=== PATIENT | female | born 1960 | race African-American/Black ===

== ENCOUNTER 2016-10-05 11:03 | Emergency (ER) | payer OTHER ==
--- NOTE | 2016-10-05 11:07 | ER Document Report ---
ED Medical Screen (RME) - General Stated Complaint: DIZZY/VOMITING Mode of Arrival: Ambulatory Information source: Patient Notes: Patient complains of dizziness. Patient reports symptoms are past 3 days. Patient reports nausea vomiting, and diarrhea. Patient denies any abdominal pain. hx: Hypertension, diabetes I have greeted and performed a rapid initial assessment of this patient. A comprehensive ED assessment and evaluation of the patient, analysis of test results and completion of the medical decision making process will be conducted by additional ED providers. TRAVEL OUTSIDE OF THE [place] IN LAST 30 DAYS: No - Related Data Allergies/Adverse Reactions: No Known Allergies Allergy (Verified 10/05/16 11:05) Past Medical History - Past Medical History Cardiac Medical History: Reports: Hx Hypertension Denies: Hx Coronary Artery Disease, Hx Heart Attack Pulmonary Medical History: Reports: Hx Asthma Denies: Hx Bronchitis, Hx COPD, Hx Pneumonia Neurological Medical History: Denies: Hx Cerebrovascular Accident, Hx Seizures Endocrine Medical History: Reports: Hx Diabetes Mellitus Type 2 Musculoskeltal Medical History: Reports Hx Arthritis - shoulders, back, knee Past Surgical History: Reports: Hx Orthopedic Surgery - Immunizations Hx Diphtheria, Pertussis, Tetanus Vaccination: No Physical Exam - General General appearance: Appears well, Alert In distress: None
[2016-10-05 11:50] LABS: ABSOLUTE MONOCYTES (AUTO) 0.6 10^3/uL (0.1-1.4); ABSOLUTE NEUT (AUTO) 2.4 10^3/uL (1.7-8.2); BASOPHILS % (AUTO) 0.4 % (0-2); EOSINOPHILS % (AUTO) 0.7 % (0-6); HEMOGLOBIN 12.8 g/dL (12.0-15.5); HGB HCT DIFFERENCE 0.4; LYMPHOCYTES % (AUTO) 39.5 % (13-45); MEAN CORPUSCULAR HEMOGLOBIN 29.5 pg (27.0-33.4); MEAN CORPUSCULAR HGB CONC 33.6 g/dL (32.0-36.0); MEAN CORPUSCULAR VOLUME 88 fl (80-97); MONOCYTES % (AUTO) 11.8 % (3-13); RED BLOOD COUNT 4.34 10^6/uL (3.72-5.28); RED CELL DISTRIBUTION WIDTH 15.5 % (11.5-14.0); SEGMENTED NEUTROPHILS % (AUTO) 47.6 % (42-78)
[2016-10-05 11:59] LABS: APPEARANCE,URINE SLIGHTLY-CLOUDY; BILIRUBIN,URINE NEGATIVE (NEGATIVE); GLUCOSE, URINE NEGATIVE (NEGATIVE); KETONES,URINE NEGATIVE (NEGATIVE); LEUKOCYTE ESTERASE,URINE NEGATIVE (NEGATIVE); NITRITE,URINE NEGATIVE (NEGATIVE); PROTEIN,URINE NEGATIVE (NEGATIVE); URINE SPECIFIC GRAVITY 1.013; UROBILINOGEN,URINE NEGATIVE mg/dL (<2.0)
[2016-10-05 12:10] LABS: ALANINE AMINOTRANSFERASE 72 U/L (9-52); ALBUMIN 4.3 g/dL (3.5-5.0); ALKALINE PHOSPHATASE 92 U/L (38-126); ANION GAP 11 (5-19); ASPARTATE AMINO TRANSFERASE 56 U/L (14-36); BLOOD UREA NITROGEN 16 mg/dL (7-20); CALCIUM 9.7 mg/dL (8.4-10.2); CARBON DIOXIDE 31 mmol/L (22-30); CHLORIDE 102 mmol/L (98-107); CREATININE RESULT 0.82 mg/dL (0.52-1.25); GLUCOSE 120 mg/dL (75-110); LIPASE 106.5 U/L (23-300); POTASSIUM 3.4 mmol/L (3.6-5.0); TOTAL PROTEIN 7.6 g/dL (6.3-8.2)
[2016-10-05] MEDS ORDERED: ONDANSETRON HCL INJ/PF 4 MG/2 ML SDV IV ONE (12:18)
[2016-10-05] MEDS ORDERED: NORMAL SALINE 1000 ML 1,000 ML IV PRN (12:18)
[2016-10-05] MEDS ORDERED: PROCHLORPERAZINE EDISYLATE INJ 10 MG/2 ML VIAL IV ONE (12:18)
--- NOTE | 2016-10-05 13:05 | ER Document Report ---
ED General - General Chief Complaint: Vomiting Stated Complaint: DIZZY/VOMITING Mode of Arrival: Ambulatory TRAVEL OUTSIDE OF THE [place] IN LAST 30 DAYS: No - HPI Patient complains to provider of: nausea vomiting dizziness Notes: Patient coming in for symptoms ongoing for the last 4 days nausea vomiting dizziness. Patient states no sick contacts no recent antibiotics. Patient states no recent travel out of state or country states no flu vaccine this year. Denies fevers chills chest pain abdominal pain - Related Data Allergies/Adverse Reactions: No Known Allergies Allergy (Verified 10/05/16 11:05) Past Medical History - General Information source: Patient - Social History Smoking Status: Unknown if Ever Smoked Chew tobacco use (# tins/day): No Frequency of alcohol use: None Drug Abuse: None Family History: Reviewed & Not Pertinent Patient has suicidal ideation: No Patient has homicidal ideation: No - Past Medical History Cardiac Medical History: Reports: Hx Hypertension Denies: Hx Coronary Artery Disease, Hx Heart Attack Pulmonary Medical History: Reports: Hx Asthma Denies: Hx Bronchitis, Hx COPD, Hx Pneumonia Neurological Medical History: Denies: Hx Cerebrovascular Accident, Hx Seizures Endocrine Medical History: Reports: Hx Diabetes Mellitus Type 2 Renal/ Medical History: Denies: Hx Peritoneal Dialysis Musculoskeltal Medical History: Reports Hx Arthritis - shoulders, back, knee Past Surgical History: Reports: Hx Orthopedic Surgery - Knee. Denies: Hx Appendectomy - Immunizations Hx Diphtheria, Pertussis, Tetanus Vaccination: No Review of Systems - Review of Systems Constitutional: No symptoms reported EENT: No symptoms reported Cardiovascular: No symptoms reported Respiratory: No symptoms reported Gastrointestinal: Abdominal pain, Nausea, Vomiting Genitourinary: No symptoms reported Female Genitourinary: No symptoms reported Musculoskeletal: No symptoms reported Skin: No symptoms reported Hematologic/Lymphatic: No symptoms reported Neurological/Psychological: No symptoms reported -: Yes All other systems reviewed and negative Physical Exam - Vital signs Vitals: Temp Pulse Resp BP Pulse Ox 97.9 F 109 H 16 153/97 H 96 10/05/16 11:06 10/05/16 11:06 10/05/16 11:06 10/05/16 11:06 10/05/16 11:06 Interpretation: Normal - General General appearance: Appears well, Alert - HEENT Head: Normocephalic, Atraumatic Eyes: Normal Pupils: PERRL - Respiratory Respiratory status: No respiratory distress Chest status: Nontender Breath sounds: Normal Chest palpation: Normal - Cardiovascular Rhythm: Regular Heart sounds: Normal auscultation Murmur: No - Abdominal Inspection: Normal Distension: No distension Bowel sounds: Normal Tenderness: Nontender Organomegaly: No organomegaly - Back Back: Normal, Nontender - Extremities General upper extremity: Normal inspection, Nontender, Normal color, Normal ROM , Normal temperature General lower extremity: Normal inspection, Nontender, Normal color, Normal ROM , Normal temperature, Normal weight bearing. No: Iron's sign - Neurological Neuro grossly intact: Yes Cognition: Normal Orientation: AAOx4 [place] Coma Scale Eye Opening: Spontaneous [place] Coma Scale Verbal: Oriented Subha Coma Scale Motor: Obeys Commands [place] Coma Scale Total: 15 Speech: Normal Motor strength normal: LUE, RUE, LLE, RLE Sensory: Normal - Psychological Associated symptoms: Normal affect, Normal mood - Skin Skin Temperature: Warm Skin Moisture: Dry Skin Color: Normal Course - Re-evaluation Re-evalutation: 10/05/16 15:17 The patient presents with n/v/d without signs of peritonitis or other life- threatening or serious etiology. The patient appears stable for discharge and has been instructed to return immediately if the symptoms worsen in any way, or in 8-12hr if not improved for re-evaluation. The patient has been instructed to return if the symptoms worsen or change in any way.. - Vital Signs Vital signs: Temp Pulse Resp BP Pulse Ox 98.3 F 91 20 122/78 93 10/05/16 14:05 10/05/16 14:05 10/05/16 14:05 10/05/16 14:05 10/05/16 14:05 - Laboratory Result Diagrams: 10/05/16 11:25 10/05/16 11:25 Laboratory results interpreted by me: 10/05/16 10/05/16 10/05/16 11:20 11:25 11:25 RDW 15.5 H Potassium 3.4 L Carbon Dioxide 31 H Glucose 120 H AST 56 H ALT 72 H Urine Blood SMALL H Discharge - Discharge Clinical Impression: Feeling unwell Nausea & vomiting Qualifiers: Vomiting type: unspecified Vomiting Intractability: unspecified Qualified Code( s): R11.2 - Nausea with vomiting, unspecified Condition: Good Disposition: HOME, SELF-CARE Instructions: Gastroenteritis (adult) ([facility]) Additional Instructions: Take medication as prescribed. Return to ER symptoms worsen. Prescriptions: Ondansetron [Zofran Odt 4 mg Tablet] 1 - 2 tab PO Q4H PRN #30 tab.rapdis PRN Reason: For Nausea/Vomiting Promethazine HCl [Phenergan 25 mg Tablet] 1 - 2 tab PO Q6H PRN #30 tablet PRN Reason: Forms: Return to Work
[2016-10-05 14:56] VITALS: BP 122/78
== END 2016-10-05 14:00 | disposition home or self-care (01) ==
LOC: ER 11:03
DX: R11.2 Nausea with vomiting, unspecified (principal); R42 Dizziness and giddiness
CPT/HCPCS: 99284; 96361; 96374; 96375; 36415; 82962; 83690; 84703; 85025; 80053; 81001; J0780; J2405; J7030

== ENCOUNTER → 2018-03-26 | Outpatient (CLI) | payer OTHER ==
[2018-03-26 17:04] LABS: ABSOLUTE EOSINOPHILS # (AUTO) 0.1 10^3/uL (0.0-0.6); ABSOLUTE LYMPHOCYTES (AUTO) 2.4 10^3/uL (0.5-4.7); ABSOLUTE MONOCYTES (AUTO) 0.5 10^3/uL (0.1-1.4); ABSOLUTE NEUT (AUTO) 1.9 10^3/uL (1.7-8.2); BASOPHILS % (AUTO) 0.4 % (0-2); EOSINOPHILS % (AUTO) 1.1 % (0-6); HEMOGLOBIN 12.6 g/dL (12.0-15.5); LYMPHOCYTES % (AUTO) 48.9 % (13-45); MEAN CORPUSCULAR HEMOGLOBIN 30.4 pg (27.0-33.4); MEAN CORPUSCULAR HGB CONC 34.2 g/dL (32.0-36.0); MEAN CORPUSCULAR VOLUME 89 fl (80-97); MONOCYTES % (AUTO) 11.1 % (3-13); PLATELET COUNT 296 10^3/uL (150-450); RED BLOOD COUNT 4.16 10^6/uL (3.72-5.28); RED CELL DISTRIBUTION WIDTH 13.6 % (11.5-14.0); SEGMENTED NEUTROPHILS % (AUTO) 38.5 % (42-78); TOTAL CELLS COUNTED % (AUTO) 100 %; WHITE BLOOD COUNT 4.9 10^3/uL (4.0-10.5)
[2018-03-26 17:43] LABS: ALANINE AMINOTRANSFERASE 43 U/L (9-52); ALBUMIN 4.2 g/dL (3.5-5.0); ALKALINE PHOSPHATASE 100 U/L (38-126); ANION GAP 14 (5-19); ASPARTATE AMINO TRANSFERASE 47 U/L (14-36); BILIRUBIN,DIRECT 0.3 mg/dL (0.0-0.4); BILIRUBIN,TOTAL 0.6 mg/dL (0.2-1.3); BLOOD UREA NITROGEN 17 mg/dL (7-20); CALCIUM 9.3 mg/dL (8.4-10.2); CARBON DIOXIDE 27 mmol/L (22-30); CHLORIDE 102 mmol/L (98-107); GLUCOSE 87 mg/dL (75-110); SODIUM 143.2 mmol/L (137-145); TOTAL PROTEIN 7.7 g/dL (6.3-8.2)
[2018-03-26 18:31] LABS: POTASSIUM 2.8 mmol/L (3.6-5.0)
== END ==
LOC: OD 16:26
PROVIDERS: ATTEND Orthopaedic Surgery
DX: Z11.2 Encounter for screening for other bacterial diseases (principal); I10 Essential (primary) hypertension; E11.8 Type 2 diabetes mellitus with unspecified complications
CPT/HCPCS: 36415; 80053; 83036; 85025; 87070

== ENCOUNTER 2019-04-07 14:13 | Emergency (ER) | payer OTHER ==
--- NOTE | 2019-04-07 14:45 | ER Document Report ---
ED Medical Screen (RME) - General Chief Complaint: Dizziness Stated Complaint: DIZZINESS Time Seen by Provider: 04/07/19 14:42 Primary Care Provider: ROGERIO ALVA MD [Primary Care Provider] - Follow up as needed Mode of Arrival: Ambulatory Information source: Patient Notes: 58-year-old female presented to ED for complaint of dizziness when she woke up this morning. She states she has had a history of dizziness in the past and had medications for but it did not help today. She states she has had some tingling and pulsating in her left arm down to her fingers for about the last month but she does not know what this is from. She states when she is busy and up and doing stuff she can black it out but when she is not busy than she feels it. She does have a history of carpal tunnel surgery diabetes type 2 blood pressure and low potassium. She is a former smoker she drinks about monthly and does not use any street drugs. She lives with her . Patient is alert oriented respirations regular and unlabored speaking in full sentences walks with a even steady gait. I have greeted and performed a rapid initial assessment of this patient. A comprehensive ED assessment and evaluation of the patient, analysis of test results and completion of medical decision making process will be conducted by an additional ED providers. Dictation of this chart was performed using voice recognition software; therefore, there may be some unintended grammatical errors. TRAVEL OUTSIDE OF THE [place] IN LAST 30 DAYS: No - Related Data Allergies/Adverse Reactions: No Known Allergies Allergy (Verified 04/07/19 14:14) Past Medical History - Past Medical History Cardiac Medical History: Reports: Hx Hypertension Denies: Hx Coronary Artery Disease, Hx Heart Attack Pulmonary Medical History: Reports: Hx Asthma Denies: Hx Bronchitis, Hx COPD, Hx Pneumonia Neurological Medical History: Denies: Hx Cerebrovascular Accident, Hx Seizures Endocrine Medical History: Reports: Hx Diabetes Mellitus Type 2 Renal/ Medical History: Denies: Hx Peritoneal Dialysis Musculoskeltal Medical History: Reports Hx Arthritis - shoulders, back, knee Past Surgical History: Reports: Hx Orthopedic Surgery - Knee. Denies: Hx Appendectomy - Immunizations Hx Diphtheria, Pertussis, Tetanus Vaccination: No Physical Exam - Vital signs Vitals: Temp Pulse Resp BP Pulse Ox 98.2 F 58 L 15 128/78 H 94 04/07/19 14:19 04/07/19 14:19 04/07/19 14:19 04/07/19 14:19 04/07/19 14:19 Course - Vital Signs Vital signs: Temp Pulse Resp BP Pulse Ox 98.2 F 58 L 15 128/78 H 94 04/07/19 14:19 04/07/19 14:19 04/07/19 14:19 04/07/19 14:19 04/07/19 14:19 Doctor's Discharge - Discharge Referrals: ROGERIO ALVA MD [Primary Care Provider] - Follow up as needed
[2019-04-07 15:15] LABS: ABSOLUTE MONOCYTES (AUTO) 0.4 10^3/uL (0.1-1.4); ABSOLUTE NEUT (AUTO) 1.7 10^3/uL (1.7-8.2); BASOPHILS % (AUTO) 0.3 % (0-2); EOSINOPHILS % (AUTO) 0.9 % (0-6); HEMATOCRIT 37.3 % (36.0-47.0); HEMOGLOBIN 12.5 g/dL (12.0-15.5); LYMPHOCYTES % (AUTO) 48.4 % (13-45); MEAN CORPUSCULAR HGB CONC 33.5 g/dL (32.0-36.0); MEAN CORPUSCULAR VOLUME 90 fl (80-97); MONOCYTES % (AUTO) 10.1 % (3-13); PLATELET COUNT 252 10^3/uL (150-450); RED BLOOD COUNT 4.16 10^6/uL (3.72-5.28); SEGMENTED NEUTROPHILS % (AUTO) 40.3 % (42-78); TOTAL CELLS COUNTED % (AUTO) 100 %; WHITE BLOOD COUNT 4.2 10^3/uL (4.0-10.5)
[2019-04-07 15:30] LABS: ALKALINE PHOSPHATASE 97 U/L (38-126); ANION GAP 7 (5-19); ASPARTATE AMINO TRANSFERASE 31 U/L (14-36); BILIRUBIN,DIRECT 0.1 mg/dL (0.0-0.4); BILIRUBIN,TOTAL 0.4 mg/dL (0.2-1.3); BLOOD UREA NITROGEN 22 mg/dL (7-20); CALCIUM 9.2 mg/dL (8.4-10.2); CARBON DIOXIDE 29 mmol/L (22-30); CHLORIDE 105 mmol/L (98-107); CREATINE KINASE 318 U/L (30-135); GLUCOSE 91 mg/dL (75-110); POTASSIUM 3.9 mmol/L (3.6-5.0); TOTAL PROTEIN 7.3 g/dL (6.3-8.2)
[2019-04-07 15:50] LABS: TROPONIN I < 0.012 ng/mL
--- NOTE | 2019-04-07 17:14 | ER Document Report ---
ED General - General Chief Complaint: Dizziness Stated Complaint: DIZZINESS Time Seen by Provider: 04/07/19 14:42 Primary Care Provider: ROGERIO ALVA MD [ASSOCIATE] - Follow up as needed Mode of Arrival: Ambulatory TRAVEL OUTSIDE OF THE [place] IN LAST 30 DAYS: No - HPI Notes: Patient presents emergency department for evaluation of dizziness as well as l eft arm tingling and pain. She states her dizziness started this morning. She complains of vertiginous type sensation. She has had this in the past. She took 12-1/2 mg of meclizine without any significant improvement so she presents here. She states that her vertigo has been improved since then. She denies any visual changes. No difficulty speaking or swallowing. Moving her arms and legs without difficulty. Over the last month she has had an aching, burning, and "jumping" pain in her left arm. It seems to go through her entire arm, upper shoulder, and into her neck. She states is helped by propping her arm on a pillow at night. Nothing seems to make it worse. - Related Data Allergies/Adverse Reactions: No Known Allergies Allergy (Verified 04/07/19 14:14) Past Medical History - General Information source: Patient - Social History Smoking Status: Former Smoker Chew tobacco use (# tins/day): No Frequency of alcohol use: Occasional Drug Abuse: None Family History: Reviewed & Not Pertinent, Malignancy Patient has suicidal ideation: No Patient has homicidal ideation: No - Past Medical History Cardiac Medical History: Reports: Hx Hypercholesterolemia - Dominant cancer, Hx Hypertension Denies: Hx Coronary Artery Disease, Hx Heart Attack Pulmonary Medical History: Reports: Hx Asthma Denies: Hx Bronchitis, Hx COPD, Hx Pneumonia Neurological Medical History: Denies: Hx Cerebrovascular Accident, Hx Seizures Endocrine Medical History: Reports: Hx Diabetes Mellitus Type 2 Renal/ Medical History: Denies: Hx Peritoneal Dialysis Musculoskeletal Medical History: Reports Hx Arthritis - shoulders, back, knee Past Surgical History: Reports: Hx Orthopedic Surgery - Knee. Denies: Hx A ppendectomy - Immunizations Hx Diphtheria, Pertussis, Tetanus Vaccination: No Review of Systems - Review of Systems Constitutional: No symptoms reported EENT: No symptoms reported Cardiovascular: No symptoms reported Respiratory: No symptoms reported Gastrointestinal: No symptoms reported Genitourinary: No symptoms reported Musculoskeletal: See HPI Skin: No symptoms reported Neurological/Psychological: See HPI Physical Exam - Vital signs Vitals: Temp Pulse Resp BP Pulse Ox 98.2 F 58 L 15 128/78 H 94 04/07/19 14:19 04/07/19 14:19 04/07/19 14:19 04/07/19 14:19 04/07/19 14:19 - Notes Notes: Vital signs reviewed, please refer to chart. Head is normocephalic, atraumatic. Pupils equal round, reactive to light. TMs are pearly alicea with good light reflex. Neck is supple without meningismus. Heart is regular rate and rhythm. Lungs are clear to auscultation bilaterally. Abdomen is soft, nontender, normoactive bowel sounds throughout. Extremities without cyanosis, clubbing. Posterior calves are nontender. Peripheral pulses are equal. Skin is warm and dry. Patient is awake, alert, oriented x3. Cranial nerves II - XII are grossly intact without focal neurological deficits. Strength is plus 5 out of 5 bilateral upper and lower extremities. Sensation is intact. Reflexes symmetrical. Intact [id number], rapid alternating movements, h eel-to-[place]. Examination of the left upper extremity yields no obvious deformity. She has significant tenderness to palpation over the paraspinal musculature throughout the cervical spine on the left, over the trapezius, particularly if he has insertion of the first rib. She has biceps tenderness to palpation. Biceps and brachioradialis reflexes are mildly diminished. Sensation is intact. Strength is plus 5 out of 5 throughout the left upper extremity. Course - Re-evaluation Re-evalutation: 04/07/19 17:12 Patient presents emergency department for evaluation. Her dizziness symptoms are most consistent with benign positional vertigo. She has no tinnitus or hearing loss. Her neurological exam is normal. I explained to the patient that she could actually take 25 mg of meclizine as needed for this dizziness, and she voiced understanding. In regards to her left upper extremity discomfort, I do believe this is secondary to cervical radiculopathy. I will send her home with some muscle relaxers. I explained to the patient in great detail that she has multiple risk factors for coronary artery disease. She should discuss stress testing with her primary care provider. She voiced understanding to this. Her work-up here was negative from a cardiac standpoint, but I was unable to rule out the presence of coronary artery disease. She voiced understanding to this as well and was discharged. 04/07/19 17:14 - Vital Signs Vital signs: Temp Pulse Resp BP Pulse Ox 98.2 F 58 L 13 133/84 H 98 04/07/19 14:19 04/07/19 14:19 04/07/19 16:01 04/07/19 16:01 04/07/19 16:01 - Laboratory Result Diagrams: 04/07/19 14:50 04/07/19 14:50 Laboratory results interpreted by me: 04/07/19 04/07/19 14:50 14:50 Lymph % (Auto) 48.4 H Seg Neutrophils % 40.3 L BUN 22 H Est GFR (MDRD) Non-Af 56 L Creatine Kinase 318 H - EKG Interpretation by Me Additional EKG results interpreted by me: 04/07/19 17:14 Sinus bradycardia with a rate of 59 bpm. Normal axis intervals. Nonspecific ST changes, but no acute changes concerning for ischemia or infarction. No significant change in compared to prior study of May 06, 2016 Discharge - Discharge Clinical Impression: Cervical radiculopathy Benign positional vertigo Qualifiers: Laterality: unspecified laterality Qualified Code(s): H81.10 - Benign paroxysmal vertigo, unspecified ear Condition: Stable Disposition: HOME, SELF-CARE Instructions: Vertigo ([facility]), Dizziness ([facility]), Radiculopathy ([facility]) Additional Instructions: Take meclizine as needed for vertigo. Please watch for drowsiness with this medication. You can also take Robaxin as needed for neck and left arm pain. Follow-up with your primary care provider for further evaluation. If you develop worsening or new concerning symptoms of any sort, return immediately to the emergency department for reevaluation. Referrals: ROGERIO ALVA MD [ASSOCIATE] - Follow up as needed
[2019-04-07 17:42] VITALS: BP 134/83
--- NOTE | 2019-04-07 20:40 | EKG REPORT ---
SEVERITY:- NORMAL ECG - SINUS RHYTHM : Confirmed by: Felicia Mccoy MD 07-Apr-2019 20:39:58
== END 2019-04-07 17:42 | disposition home or self-care (01) ==
LOC: ER 14:13
DX: H81.10 Benign paroxysmal vertigo, unspecified ear (principal); M54.12 Radiculopathy, cervical region; R20.2 Paresthesia of skin; M79.602 Pain in left arm; R00.1 Bradycardia, unspecified; I10 Essential (primary) hypertension; E11.9 Type 2 diabetes mellitus without complications; Z87.891 Personal history of nicotine dependence
CPT/HCPCS: 36415; 80053; 82550; 82553; 84484; 85025; 93005; 93010

== ENCOUNTER 2020-08-09 13:24 | Emergency (ER) | payer OTHER ==
--- NOTE | 2020-08-09 14:08 | ER Document Report ---
ED Medical Screen (RME) - General Chief Complaint: Back Pain Stated Complaint: BACK PAIN Time Seen by Provider: 08/09/20 14:08 Mode of Arrival: Wheelchair Information source: Patient Notes: 59-year-old female presented to ED for flank pain since ago Thursday. She did call the doctor by the telephone on Thursday and was started on fluconazole. She took all of this and did not get any relief. She states that the doctor recommended she come in to be tested for Covid she did get tested for Covid and flu and they were negative yesterday. She states she still having the symptoms and she is here today she states she has had kidney problems in the past but it has been a while. We will get blood urine and kidney ultrasounds and have her examined by another provider. She is also having a headache and would like to be examined for this as well. I have greeted and performed a rapid initial assessment of this patient. A comprehensive ED assessment and evaluation of the patient, analysis of test results and completion of medical decision making process will be conducted by an additional ED providers. TRAVEL OUTSIDE OF THE [place] IN LAST 30 DAYS: No - Related Data Allergies/Adverse Reactions: No Known Allergies Allergy (Verified 04/07/19 14:14) Past Medical History - Past Medical History Cardiac Medical History: Reports: Hx Hypercholesterolemia - Dominant cancer, Hx Hypertension Denies: Hx Coronary Artery Disease, Hx Heart Attack Pulmonary Medical History: Reports: Hx Asthma Denies: Hx Bronchitis, Hx COPD, Hx Pneumonia Neurological Medical History: Denies: Hx Cerebrovascular Accident, Hx Seizures Endocrine Medical History: Reports: Hx Diabetes Mellitus Type 2 Renal/ Medical History: Denies: Hx Peritoneal Dialysis Musculoskeltal Medical History: Reports Hx Arthritis - shoulders, back, knee Past Surgical History: Reports: Hx Orthopedic Surgery - Knee. Denies: Hx Appendectomy - Immunizations Hx Diphtheria, Pertussis, Tetanus Vaccination: No Physical Exam - Vital signs Vitals: Temp Pulse Resp BP Pulse Ox 100.3 F 90 16 112/56 L 100 08/09/20 13:31 08/09/20 13:31 08/09/20 13:31 08/09/20 13:31 08/09/20 13:31 Course - Vital Signs Vital signs: Temp Pulse Resp BP Pulse Ox 100.3 F 90 16 112/56 L 100 08/09/20 13:31 08/09/20 13:31 08/09/20 13:31 08/09/20 13:31 08/09/20 13:31
[2020-08-09 15:06] LABS: ABSOLUTE BASOPHILS # (AUTO) 0.1 10^3/uL (0.0-0.2); ABSOLUTE LYMPHOCYTES (AUTO) 1.1 10^3/uL (0.5-4.7); ABSOLUTE MONOCYTES (AUTO) 1.2 10^3/uL (0.1-1.4); ABSOLUTE NEUT (AUTO) 9.3 10^3/uL (1.7-8.2); BASOPHILS % (AUTO) 0.5 % (0-2); EOSINOPHILS % (AUTO) 0.2 % (0-6); HEMATOCRIT 33.1 % (36.0-47.0); HEMOGLOBIN 11.5 g/dL (12.0-15.5); LYMPHOCYTES % (AUTO) 9.3 % (13-45); MEAN CORPUSCULAR HEMOGLOBIN 29.6 pg (27.0-33.4); MEAN CORPUSCULAR HGB CONC 34.7 g/dL (32.0-36.0); MEAN CORPUSCULAR VOLUME 85 fl (80-97); MONOCYTES % (AUTO) 10.5 % (3-13); PLATELET COUNT 269 10^3/uL (150-450); RED BLOOD COUNT 3.88 10^6/uL (3.72-5.28); RED CELL DISTRIBUTION WIDTH 13.8 % (11.5-14.0); SEGMENTED NEUTROPHILS % (AUTO) 79.5 % (42-78); TOTAL CELLS COUNTED % (AUTO) 100 %; WHITE BLOOD COUNT 11.7 10^3/uL (4.0-10.5)
[2020-08-09 15:11] LABS: APPEARANCE,URINE CLOUDY; BILIRUBIN,URINE NEGATIVE (NEGATIVE); GLUCOSE, URINE NEGATIVE (NEGATIVE); KETONES,URINE NEGATIVE (NEGATIVE); LEUKOCYTE ESTERASE,URINE LARGE (NEGATIVE); NITRITE,URINE POSITIVE (NEGATIVE); PROTEIN,URINE 100 mg/dL (NEGATIVE)
--- NOTE | 2020-08-09 15:11 | RADIOLOGY REPORT (SQ) ---
EXAM DESCRIPTION: U/S RETROPERITON (RENAL/AORTA) IMAGES COMPLETED DATE/TIME: 08/09/2020 2:49 pm REASON FOR STUDY: Bilateral kidney pain COMPARISON: None. TECHNIQUE: Dynamic and static grayscale images acquired of the kidneys and bladder and recorded on P ACS. Additional selected color Doppler and spectral images recorded. LIMITATIONS: None. FINDINGS: RIGHT KIDNEY: The right kidney measures 12.5 x 6.2 x 5.9 cm, normal size. Diffuse mild i ncreased echogenicity of the kidney may be on the basis of medical renal disease. Multiple very smal l echogenic areas may represent small nonobstructing punctate calculi. LEFT KIDNEY: The left kidney measures 11.4 x 7.1 x 7.3 cm, normal size. Diffuse mild increased echo genicity of the kidney may be on the basis of medical renal disease. Multiple very small punctate ec hogenic areas may represent nonobstructing calcifications. BLADDER: No masses. Bilateral ureteral jets are visualized. OTHER FINDINGS: Incidentally, fatty liver. No other significant finding. IMPRESSION: 1. Diffuse mild increased echogenicity of the kidneys, may be on the basis of medical r enal disease. 2. Multiple very small echogenic foci, may represent small nonobstructing punctate calculi. TECHNICAL DOCUMENTATION: JOB ID: [id number] 2010 [employer]- All Rights Reserved Reading location - IP/workstation name: [email or web address]
[2020-08-09 15:12] LABS: COLOR,URINE DARK YELLOW
[2020-08-09 15:30] LABS: ANION GAP 12 (5-19)
[2020-08-09 15:36] LABS: ALBUMIN 3.3 g/dL (3.5-5.0); ALKALINE PHOSPHATASE 237 U/L (38-126); ASPARTATE AMINO TRANSFERASE 57 U/L (14-36); BILIRUBIN,DIRECT 2.4 mg/dL (0.0-0.4); BILIRUBIN,TOTAL 3.3 mg/dL (0.2-1.3); BLOOD UREA NITROGEN 30 mg/dL (7-20); CALCIUM 8.4 mg/dL (8.4-10.2); CARBON DIOXIDE 28 mmol/L (22-30); CHLORIDE 95 mmol/L (98-107); CREATINE KINASE 56 U/L (30-135); GLUCOSE 106 mg/dL (75-110); POTASSIUM 3.4 mmol/L (3.6-5.0); TOTAL PROTEIN 7.3 g/dL (6.3-8.2)
--- NOTE | 2020-08-09 17:05 | ER Document Report ---
ED Neck/Back Problem - General Chief Complaint: Back Pain Stated Complaint: BACK PAIN Time Seen by Provider: 08/09/20 14:08 Mode of Arrival: Wheelchair Information source: Patient Notes: ED Medical Screen (Susu Greco) - General Chief Complaint: Back Pain Stated Complaint: BACK PAIN Time Seen by Provider: 08/09/20 14:08 Mode of Arrival: Wheelchair Information source: Patient Notes: 59-year-old female presented to ED for flank pain since ago Thursday. She did call the doctor by the telephone on Thursday and was started on fluconazole. She took all of this and did not get any relief. She states that the doctor recommended she come in to be tested for Covid she did get tested for Covid and flu and they were negative yesterday. She states she still having the symptoms and she is here today she states she has had kidney problems in the past but it has been a while. We will get blood urine and kidney ultrasounds and have her examined by another provider. She is also having a headache and would like to be examined for this as well. MY NOTES 59-year-old black female arrives with her with chief complaint of 4 days of bilateral SI joint pain. She points to these areas. She was seen by Susu at triage and urinalysis reveals UTI pyelonephritis. Ultrasound revealed a echogenic kidneys with kidney stones but nonobstructing. Patient also complains of chronic frontal sinusitis pressure and pain without any rhinorrhea or sore throat. Patient denies any nuchal rigidity or otalgia. TRAVEL OUTSIDE OF THE [place] IN LAST 30 DAYS: No - HPI Patient complains to provider of: Pain, Lower back. No: Injury, Neck, Upper domi k Onset: Last week Where: Home. No: Indoors, [facility] Onset: Gradual Timing: Constant, Still present, Worse Quality of pain: Achy Severity: Moderate Pain Level: 3 - Related Data Allergies/Adverse Reactions: No Known Allergies Allergy (Verified 04/07/19 14:14) Past Medical History - General Information source: Patient - Social History Smoking Status: Never Smoker Cigarette use (# per day): No Chew tobacco use (# tins/day): No Smoking Education Provided: No Frequency of alcohol use: None Drug Abuse: None Lives with: Family Family History: Reviewed & Not Pertinent, Malignancy Patient has suicidal ideation: No Patient has homicidal ideation: No - Past Medical History Cardiac Medical History: Reports: Hx Hypercholesterolemia - Dominant cancer, Hx Hypertension Denies: Hx Coronary Artery Disease, Hx Heart Attack Pulmonary Medical History: Reports: Hx Asthma Denies: Hx Bronchitis, Hx COPD, Hx Pneumonia Neurological Medical History: Denies: Hx Cerebrovascular Accident, Hx Seizures Endocrine Medical History: Reports: Hx Diabetes Mellitus Type 2 Renal/ Medical History: Denies: Hx Peritoneal Dialysis Musculoskeletal Medical History: Reports Hx Arthritis - shoulders, back, knee Past Surgical History: Reports: Hx Orthopedic Surgery - Knee. Denies: Hx Appendectomy - Immunizations Hx Diphtheria, Pertussis, Tetanus Vaccination: No Review of Systems - Review of Systems Constitutional: See HPI, Fever, Weakness EENT: No symptoms reported Cardiovascular: No symptoms reported Respiratory: No symptoms reported Gastrointestinal: No symptoms reported Genitourinary: No symptoms reported Female Genitourinary: No symptoms reported Musculoskeletal: See HPI, Back pain, Joint swelling, Muscle pain, Muscle stiffness Skin: No symptoms reported Hematologic/Lymphatic: No symptoms reported Neurological/Psychological: No symptoms reported -: Yes All other systems reviewed and negative Physical Exam - Vital signs Vitals: Temp Pulse Resp BP Pulse Ox 100.3 F 90 16 112/56 L 100 08/09/20 13:31 08/09/20 13:31 08/09/20 13:31 08/09/20 13:31 08/09/20 13:31 Interpretation: Febrile - General General appearance: Appears well, Alert - HEENT Head: Normocephalic, Atraumatic Eyes: Normal Pupils: PERRL Sinus: Frontal, Tenderness - Respiratory Respiratory status: No respiratory distress Chest status: Nontender Breath sounds: Normal Chest palpation: Normal - Cardiovascular Rhythm: Regular Heart sounds: Normal auscultation Murmur: No - Abdominal Inspection: Normal Distension: No distension Bowel sounds: Normal Tenderness: Nontender Organomegaly: No organomegaly - Rectal Hemorrhoids: Other - deferred - Genitourinary Bimanuel exam: Other - deferred - Back Back: Tender - L>R SI and CVA pains on rom p/p - Extremities General upper extremity: Normal inspection, Nontender, Normal color, Normal ROM, Normal temperature General lower extremity: Normal inspection, Nontender, Normal color, Normal ROM, Normal temperature, Normal weight bearing. No: Iron's sign - Neurological Neuro grossly intact: Yes Cognition: Normal Orientation: AAOx4 Weinert Coma Scale Eye Opening: Spontaneous Weinert Coma Scale Verbal: Oriented Subha Coma Scale Motor: Obeys Commands Weinert Coma Scale Total: 15 Speech: Normal Motor strength normal: LUE, RUE, LLE, RLE Sensory: Normal - Psychological Associated symptoms: Normal affect, Normal mood - Skin Skin Temperature: Warm Skin Moisture: Dry Skin Color: Normal Course - Vital Signs Vital signs: Temp Pulse Resp BP Pulse Ox 100.3 F 90 16 112/56 L 100 08/09/20 13:31 08/09/20 13:31 08/09/20 13:31 08/09/20 13:31 08/09/20 13:31 - Laboratory Results Result Diagrams: 08/09/20 14:42 08/09/20 14:42 Laboratory Results Interpreted: 08/09/20 08/09/20 08/09/20 14:42 14:42 14:42 WBC 11.7 H Hgb 11.5 L Hct 33.1 L Lymph % (Auto) 9.3 L Absolute Neuts (auto) 9.3 H Seg Neutrophils % 79.5 H Sodium 135.4 L Potassium 3.4 L Chloride 95 L BUN 30 H Creatinine 2.09 H Est GFR ( Amer) 29 L Est GFR (MDRD) Non-Af 24 L Total Bilirubin 3.3 H Direct Bilirubin 2.4 H AST 57 H ALT 41 H Alkaline Phosphatase 237 H Albumin 3.3 L Urine Protein 100 H Urine Blood MODERATE H Urine Nitrite POSITIVE H Urine Urobilinogen 4.0 H Ur Leukocyte Esterase LARGE H Critical Laboratory Results Reviewed: Yes Attending or Supervising Physician who Reviewed Labs: BAO PIERCE JR - Radiology Results Radiology Results Interpreted: 08/09/20 17:22 Dr. Coy radiologist read this ultrasound. Critical Radiology Results Reviewed: No Critical Results Attending or Supervising Physician who Reviewed Radiology: BAO PIERCE JR Critical Care Note - Critical Care Note Comments: Patient was given IM shot of Toradol Rocephin and gentamicin by nursing staff Discharge - Discharge Clinical Impression: Frontal headache UTI (urinary tract infection) Qualifiers: Urinary tract infection type: acute cystitis Hematuria presence: without hematuria Qualified Code(s): N30.00 - Acute cystitis without hematuria Back pain Qualifiers: Back pain location: low back pain Chronicity: acute Back pain laterality: bilateral Sciatica presence: without sciatica Qualified Code(s): M54.5 - Low back pain Condition: Stable Disposition: HOME, SELF-CARE Additional Instructions: Apply Bactroban to nose nightly for 1 week; take medications orally as directed; encourage fluids but avoid carbonated drinks like soda for least 1 week. Return to ER as needed and follow-up with your personal doctor next week. Avoid bending lifting or twisting because of back pain Prescriptions: Mupirocin [Bactroban 2% Ointment 22 gm] 1 applic NASL HSP PRN #1 tube PRN Reason: Ciprofloxacin HCl [Cipro 500 mg Tablet] 500 mg PO BID #20 tablet
[2020-08-09] MEDS ORDERED: HYDROCODONE/ACETAMINOPHEN 5-325 MG (6 TAB/ER DISP) PO PRN (17:18)
[2020-08-09] MEDS ORDERED: KETOROLAC TROMETHAMINE INJ/PF 30 MG/1 ML SDV IM ONE (17:19)
[2020-08-09] MEDS ORDERED: CEFTRIAXONE INJ 1000 MG VIAL IM ONE (17:21)
[2020-08-09] MEDS ORDERED: GENTAMICIN SULFATE INJ 80 MG/2 ML VIAL IM ONE (17:22)
[2020-08-09 18:30] VITALS: BP 118/62
== END 2020-08-09 18:30 | disposition home or self-care (01) ==
LOC: ER 13:24
DX: N30.00 Acute cystitis without hematuria (principal); R53.1 Weakness; R51.9 Headache, unspecified; M54.5 Low back pain; M54.9 Dorsalgia, unspecified; R10.9 Unspecified abdominal pain; R50.9 Fever, unspecified; Z79.899 Other long term (current) drug therapy; I10 Essential (primary) hypertension; J45.909 Unspecified asthma, uncomplicated; E11.9 Type 2 diabetes mellitus without complications
CPT/HCPCS: 99285; 96372; 36415; 87086; 82550; 85025; 87088; 80053; 81001; 87186; 76770; J1580; J1885; J0696